=== PATIENT | female | born 2000 | race Caucasian/White ===

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

== ENCOUNTER 2022-10-21 08:35 | Emergency (ER) | payer OTHER ==
[2022-10-21 08:48] VITALS: BMI 38.5
[2022-10-21] MEDS ORDERED: CEPHALEXIN MONOHYDRATE 500 MG CAPSULE (UD) PO ONE (09:29)
[2022-10-21] MEDS ORDERED: CEPHALEXIN MONOHYDRATE 500 MG CAPSULE (UD) ONE (09:30)
[2022-10-21 09:43] VITALS: BP 105/60; PULSE 70; RESP 18; TEMP 96.7
== END 2022-10-21 09:45 | disposition home or self-care (01) ==
LOC: JER 08:35
DX: L03.115 Cellulitis of right lower limb (principal)
CPT/HCPCS: 99283-25

== ENCOUNTER 2022-12-20 14:49 | Emergency (ER) | payer OTHER ==
[2022-12-20 14:55] VITALS: BP 119/75; PULSE 84; RESP 18; TEMP 97.3; BMI 40.6
[2022-12-20 17:01] LABS: EPI CELLS >36 /uL (0-25.1); HYALINE CASTS 1 /uL (0-3.1); URINE APPEARANCE CLOUDY; URINE BACTERIA 5298 /uL (0-1359); URINE BILIRUBIN NEGATIVE (NEGATIVE); URINE COLOR YELLOW; URINE GLUCOSE (UA) NEGATIVE (NEGATIVE); URINE KETONE NEGATIVE (NEGATIVE); URINE LEUK ESTERASE 2+ (NEGATIVE); URINE NITRITE NEGATIVE (NEGATIVE); URINE PROTEIN NEGATIVE (NEGATIVE); URINE UROBILINOGEN 0.2 mg/dL (0.2-1.0); URINE WBC 49 /uL (0-25.8)
== END 2022-12-20 17:43 | disposition home or self-care (01) ==
LOC: JER 14:49
DX: R10.30 Lower abdominal pain, unspecified (principal); R30.0 Dysuria
CPT/HCPCS: 81003; 87086; 99283-25

== ENCOUNTER 2023-08-05 09:36 | Emergency (ER) | payer OTHER ==
[2023-08-05 09:49] VITALS: BP 109/68; PULSE 100; RESP 18; TEMP 98; BMI 40.8
[2023-08-05] MEDS ORDERED: ONDANSETRON *ODT* 4 MG TABLET ONE (11:03)
[2023-08-05] MEDS ORDERED: FAMOTIDINE 20 MG TABLET ONE (11:04)
[2023-08-05] MEDS: FAMOTIDINE 20 MG TABLET PO ONE (11:05)
[2023-08-05] MEDS: ONDANSETRON *ODT* 4 MG TABLET SL ONE (11:05)
[2023-08-05 11:26] LABS: EPI CELLS 36 /uL (0-25.1); HYALINE CASTS 0 /uL (0-3.1); URINE APPEARANCE CLOUDY; URINE BACTERIA 7704 /uL (0-1359); URINE BILIRUBIN NEGATIVE (NEGATIVE); URINE COLOR YELLOW; URINE GLUCOSE (UA) NEGATIVE (NEGATIVE); URINE KETONE NEGATIVE (NEGATIVE); URINE LEUK ESTERASE 1+ (NEGATIVE); URINE NITRITE NEGATIVE (NEGATIVE); URINE PROTEIN TRACE (NEGATIVE); URINE UROBILINOGEN 0.2 mg/dL (0.2-1.0); URINE WBC 23 /uL (0-25.8)
[2023-08-05 12:03] LABS: HCG,QUALITATIVE URINE Negative
[2023-08-05 12:12] LABS: URINE RBC 110.9 /uL (0-23.9)
[2023-08-05 12:13] LABS: YEAST NEGATIVE (NEGATIVE)
== END 2023-08-05 12:34 | disposition home or self-care (01) ==
LOC: JER 09:36
DX: R11.2 Nausea with vomiting, unspecified (principal); N39.0 Urinary tract infection, site not specified; R19.7 Diarrhea, unspecified
CPT/HCPCS: 81003; 82962; 84703; 87086; 99283-25; Q0162